=== PATIENT | female | born 1975 | race Caucasian/White ===

== ENCOUNTER 2018-12-01 15:26 | Emergency (ER) | payer OTHER ==
[~2018-12-01] VITALS: Ht 160 cm; Wt 97.0 kg
[~2018-12-01 15:26] MED LIST: ALBUTEROL SUL0.083 % IN; CEPHALEXIN500 MG PO; KEFLEX500 MG PO; NAPROSYN500 MG PO; ROBITUSSIN AC10 ML PO; ULTRAM50 M1 PO; ZITHROMAX250 MG PO
[2018-12-01 16:03] LABS: IMMATURE GRANULOCYTES 0.3 % (0.0-5.0); MEAN CELL VOLUME 87.8 fL CALC (80.0-100.0); MEAN CORPUSCULAR HGB 28.9 pG CALC (26.0-32.0); MEAN CORPUSCULAR HGB CONC 32.9 g/L CALC (32.0-36.0); NEUT# 3.79 thou/uL (2.00-7.15); RED BLOOD COUNT 4.77 mill/uL (4.20-5.60); RED CELL DISTRI WIDTH 13.2 % (11.5-15.5)
[2018-12-01 16:05] LABS: HEMATOCRIT 41.9 % (37.0-47.0); HEMOGLOBIN 13.8 g/dl (12.0-16.0)
[2018-12-01] MEDS ORDERED: VENTOLIN HFA IN (16:35)
[2018-12-01] MEDS ORDERED: PREDNISONE10 MG PO (16:35)
[2018-12-01 17:09] VITALS: BP 160/85
== END 2018-12-01 17:44 | disposition home or self-care (01) ==
LOC: ED 15:26
PROVIDERS: Family Medicine
DX: B34.9 Viral infection, unspecified (principal); F17.210 Nicotine dependence, cigarettes, uncomplicated

== ENCOUNTER 2019-04-19 19:54 | Emergency (ER) | payer OTHER ==
[~2019-04-19] VITALS: Ht 160 cm; Wt 98.0 kg
[~2019-04-19 19:54] MED LIST changes: +PREDNISONE10 MG PO; +VENTOLIN HFA IN
[2019-04-19 21:15] VITALS: BP 149/79
== END 2019-04-19 21:15 | disposition home or self-care (01) ==
LOC: ED 19:54
DX: M25.562 Pain in left knee (principal); F17.200 Nicotine dependence, unspecified, uncomplicated
CPT/HCPCS: L1830

== ENCOUNTER 2022-08-26 18:33 | Observation (INO) | payer SELFPAY ==
[~2022-08-26] VITALS: Ht 160 cm; Wt 105.4 kg
[2022-08-26 19:17] LABS: BASO% 0.3 % (0-3); EOS% 0.3 % (0-8); HEMATOCRIT 43.1 % (37.0-47.0); HEMOGLOBIN 14.4 g/dl (12.0-16.0); IMMATURE GRANULOCYTES 0.6 % (0.0-5.0); LYMPH% 8.7 % (15-41); MEAN CELL VOLUME 86.2 fL CALC (80.0-100.0); MEAN CORPUSCULAR HGB 28.8 pG CALC (26.0-32.0); MEAN CORPUSCULAR HGB CONC 33.4 g/dL CAL (32.0-36.0); NEUT# 5.73 thou/uL (2.00-7.15); NEUT% 83.1 % (42-76); RED CELL DISTRI WIDTH 14.2 % (11.5-15.5)
[2022-08-26 19:23] LABS: ALBUMIN 4.6 g/dL (3.2-5.0); ALKALINE PHOSPHATASE 114 u/l (38-126); ANION GAP 11 (6-22 (CALC)); BILIRUBIN, TOTAL 0.3 mg/dL (0.0-1.4); BUN 9 mg/dL (7-17); BUN/CREATININE RATIO 15 (12-20 (CALC)); CARBON DIOXIDE 28 mmol/l (22-30); CHLORIDE 98 mmol/l (95-108); CREATININE 0.6 mg/dL (0.5-1.0); GFR FOR AFR.AMER. > 60 ML/MIN (>=60 (CALC)); GFR OTHER RACES > 60 ML/MIN (>=60 (CALC)); SGOT/AST 34 u/l (14-36); SODIUM 133 mmol/l (137-146); TOTAL PROTEIN 7.9 g/dL (6.3-8.2)
[2022-08-26 19:24] LABS: POTASSIUM 4.3 mmol/l (3.5-5.1)
[2022-08-26 22:43] VITALS: BP 163/89
[2022-08-27 04:02] VITALS: BP 159/94
[2022-08-27 06:21] LABS: BASO% 0.3 % (0-3); HEMOGLOBIN 14.7 g/dl (12.0-16.0); IMMATURE GRANULOCYTES 0.3 % (0.0-5.0); LYMPH% 10.3 % (15-41); MEAN CELL VOLUME 87.6 fL CALC (80.0-100.0); MEAN CORPUSCULAR HGB 29.3 pG CALC (26.0-32.0); MEAN CORPUSCULAR HGB CONC 33.4 g/dL CAL (32.0-36.0); MONO% 1.7 % (2-13); NEUT# 5.66 thou/uL (2.00-7.15); NEUT% 87.4 % (42-76); RED BLOOD COUNT 5.02 mill/uL (4.20-5.60); RED CELL DISTRI WIDTH 14.4 % (11.5-15.5)
[2022-08-27 06:30] VITALS: BP 170/94
[2022-08-27 06:48] LABS: ALBUMIN 4.2 g/dL (3.2-5.0); ALKALINE PHOSPHATASE 102 u/l (38-126); ANION GAP 12 (6-22 (CALC)); BUN 11 mg/dL (7-17); BUN/CREATININE RATIO 19 (12-20 (CALC)); CARBON DIOXIDE 27 mmol/l (22-30); CHLORIDE 102 mmol/l (95-108); CREATININE 0.6 mg/dL (0.5-1.0); GFR FOR AFR.AMER. > 60 ML/MIN (>=60 (CALC)); GFR OTHER RACES > 60 ML/MIN (>=60 (CALC)); POTASSIUM 4.6 mmol/l (3.5-5.1); SGOT/AST 35 u/l (14-36); SODIUM 136 mmol/l (137-146); TOTAL PROTEIN 7.6 g/dL (6.3-8.2)
[2022-08-27 06:51] LABS: BILIRUBIN, TOTAL 0.1 mg/dL (0.0-1.4)
[2022-08-27 15:51] VITALS: BP 153/72
[2022-08-27 19:16] VITALS: BP 159/87
[2022-08-28 01:18] VITALS: BP 138/78
[2022-08-28 03:27] VITALS: BP 112/75
[2022-08-28 06:00] LABS: BASO% 0.1 % (0-3); HEMATOCRIT 44.6 % (37.0-47.0); HEMOGLOBIN 14.6 g/dl (12.0-16.0); IMMATURE GRANULOCYTES 0.3 % (0.0-5.0); LYMPH% 13.4 % (15-41); MEAN CELL VOLUME 87.6 fL CALC (80.0-100.0); MEAN CORPUSCULAR HGB 28.7 pG CALC (26.0-32.0); MEAN CORPUSCULAR HGB CONC 32.7 g/dL CAL (32.0-36.0); MONO% 7.2 % (2-13); NEUT# 6.97 thou/uL (2.00-7.15); RED BLOOD COUNT 5.09 mill/uL (4.20-5.60); RED CELL DISTRI WIDTH 14.4 % (11.5-15.5)
[2022-08-28 06:05] VITALS: BP 123/67
[2022-08-28 06:21] LABS: ALBUMIN 4.3 g/dL (3.2-5.0); ALKALINE PHOSPHATASE 108 u/l (38-126); ANION GAP 10 (6-22 (CALC)); BILIRUBIN, TOTAL 0.1 mg/dL (0.0-1.4); BUN 16 mg/dL (7-17); BUN/CREATININE RATIO 26 (12-20 (CALC)); CHLORIDE 101 mmol/l (95-108); CREATININE 0.6 mg/dL (0.5-1.0); GFR FOR AFR.AMER. > 60 ML/MIN (>=60 (CALC)); GFR OTHER RACES > 60 ML/MIN (>=60 (CALC)); POTASSIUM 4.2 mmol/l (3.5-5.1); SGOT/AST 28 u/l (14-36); SODIUM 140 mmol/l (137-146); TOTAL PROTEIN 7.6 g/dL (6.3-8.2)
[2022-08-28 06:23] LABS: CARBON DIOXIDE 33 mmol/l (22-30)
[2022-08-28] MEDS ORDERED: TAM75CAP PO (11:03)
[2022-08-28] MEDS ORDERED: ZITHROMAX250 MG PO (11:04)
[2022-08-28] MEDS ORDERED: MEDDOSEPAK PO (11:04)
[2022-08-28 11:17] VITALS: BP 172/82
[2022-08-28 11:30] VITALS: BP 172/82
== END 2022-08-28 12:15 | disposition home or self-care (01) | DRG 194 ==
LOC: ED 18:33 → MS2 20:14
PROVIDERS: Family Medicine; Nurse Practitioner Family; ADMIT Internal Medicine; ATTEND Internal Medicine
PROC: 3E0234Z Introduction of Serum, Toxoid and Vaccine into Muscle, Percutaneous Approach (ICD-10-PCS; principal; 2022-08-28)
PROC: 3E02340 Introduction of Influenza Vaccine into Muscle, Percutaneous Approach (ICD-10-PCS; 2022-08-28)
DX: J10.1 Influenza due to other identified influenza virus with other respiratory manifestations (principal); J44.1 Chronic obstructive pulmonary disease with (acute) exacerbation; R09.02 Hypoxemia; I10 Essential (primary) hypertension; E11.9 Type 2 diabetes mellitus without complications; E66.9 Obesity, unspecified; F17.210 Nicotine dependence, cigarettes, uncomplicated; Z23 Encounter for immunization; Z20.822 Contact with and (suspected) exposure to COVID-19
CPT/HCPCS: G0378